=== PATIENT | male | born 1995 | race Caucasian/White ===

== ENCOUNTER 2020-11-28 15:48 | Emergency (ER) | payer OTHER, MEDICARE, BC ==
[~2020-11-28 15:48] MED LIST: Iopamidol-370 76% 500 ML 1 ML ONE
[2020-11-28 16:18] LABS: Hemoglobin 15.4 g/dL (14.0-18.0); Mean Corpuscular HGB CONC 34.9 g/dL (32.0-36.0); Mean Corpuscular Volume 94.8 fL (78.0-98.0); Mean Platelet Volume 9.9 fL (7.4-10.4); Platelet Count 182 thou/uL (130-400); RBC Distribution Width 14.4 % (11.5-14.5); Red Blood Cell (RBC) Count 4.67 mill/uL (4.70-6.10)
[2020-11-28 16:22] LABS: #Eosinphils 0.1 thou/uL (0.0-0.7); #Lymphocytes 2.5 thou/uL (1.20-3.40); #Neutrophils 12.4 thou/uL (1.40-6.50); %Basophils 0.1 % (0.0-1.0); %Eosinophils 0.7 % (0.0-10.0); %Lymphocytes 15.3 % (21.0-51.0); %Monocytes 5.9 % (0.0-10.0); %Neutrophils 77.9 % (42.0-75.0); White Blood Cell (WBC) Count 15.9 thou/uL (4.8-10.8)
[2020-11-28 16:39] LABS: ALT (SGPT) 95 U/L (8-55); AST (SGOT) 52 U/L (5-34); Albumin 4.5 g/dL (3.5-5.0); Alkaline Phosphatase 120 U/L (40-110); Anion Gap 17 mmol/L (10-20); BUN (Urea Nitrogen) 12 mg/dL (8.9-20.6); Bilirubin, Total 0.8 mg/dL (0.2-1.2); Calc. Creatinine Clearance 0 mL/min (70-130); Calcium 9.6 mg/dL (7.8-10.44); Carbon Dioxide 23 mmol/L (22-29); Chloride 104 mmol/L (98-107); Globulin 3.6 g/dL (2.4-3.5); Glucose 96 mg/dL (70-105); Lipase 40 U/L (8-78); Potassium 3.7 mmol/L (3.5-5.1); Protein, Total 8.1 g/dL (6.0-8.3); Sodium 140 mmol/L (136-145)
[2020-11-28 16:56] LABS: HBSAg Index 0.25 S/CO (0-0.99); HIV (1/2) Antibody/Antigen Non-Reactive (NonReactive); HIV 1/2 INDEX 0.07 S/CO (<1.00); Hep B Surf Ag Non-Reactive S/CO (NonReactive); Hep C IgG Ab Non-Reactive (NonReactive); Hep C Index 0.19 S/CO (0-0.79)
[2020-11-28] MEDS ORDERED: Fentanyl 100 MCG/2 ML VIAL ONE (16:59)
[2020-11-28] MEDS ORDERED: Lidocaine 1% (PF) 30 ML VIAL ONE (17:32)
[2020-11-28] MEDS ORDERED: Lorazepam 2 MG/ML VIAL ONE (19:26)
[2020-11-28] MEDS ORDERED: Boostrix 0.5 ML (Tdap) VIAL ONE (19:35)
== END 2020-11-28 20:23 | disposition home or self-care (01) ==
LOC: ERS 15:48
DX: S32.059A Unspecified fracture of fifth lumbar vertebra, initial encounter for closed fracture (principal); S01.81XA Laceration without foreign body of other part of head, initial encounter; R74.01 Elevation of levels of liver transaminase levels; V89.2XXA Person injured in unspecified motor-vehicle accident, traffic, initial encounter
CPT/HCPCS: 12013; 36415; 70450; 70486; 71045; 71260; 72125; 72170; 74177; 80053; 83690; 85025; 86803; 86850; 86900; 86901; 87340; 87389; 90471; 90715; 93005; 96365; 96375; G0390; J0690; J2001; J2060; J3010; Q9967